=== PATIENT | female | born 2000 | race Caucasian/White ===

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

== ENCOUNTER → 2021-11-22 12:13 | Outpatient (CLI) | payer BC, OTHER, SELFPAY ==
[2021-11-22 14:12] LABS: HCG,Quantitative 4854 mIU/ml (0-5.42)
== END ==
PROVIDERS: PCP Family Medicine; Visit Provider Nurse Practitioner Obstetrics & Gynecology
DX: N92.6 Irregular menstruation, unspecified (principal)
CPT/HCPCS: 36415; 84702

== ENCOUNTER → 2021-12-20 15:02 | Outpatient (CLI) | payer BC, OTHER, SELFPAY ==
[2021-12-20 15:48] LABS: Basophils # 0.1 K/mm3 (0-0.2); Basophils % 0.8 % (0.1-2.0); Eosinophils % 0.3 % (0.1-12.0); Hematocrit 40.6 % (37.0-47.0); Hemoglobin 13.6 g/dL (12.2-16.2); Lymphocytes # 1.9 K/mm3 (0.7-4.5); Lymphocytes % 20.1 % (10-50); Mean Corpuscular HGB Conc 33.6 g/dL (31.8-35.4); Mean Corpuscular Hemoglobin 27.8 pg (27.0-31.2); Mean Corpuscular Volume 82.9 fl (81-99); Mean Platelet Volume 12.9 fl (7.4-10.4); Monocytes # 0.4 K/mm3 (0.1-1.0); Monocytes % 3.8 % (1.7-9.3); Red Blood Count 4.89 M/mm3 (4.20-5.40); Red Cell Distribution Width 14.4 % (11.5-17.5); White Blood Count 9.4 K/mm3 (4.5-13.0)
[2021-12-20 15:51] LABS: Platelet Count 39 K/mm3 (142-424)
[2021-12-22 12:15] LABS: Rapid Plasma Reagin Ab Titer Non Reactive (NonRea<1:1)
[2021-12-22 13:17] LABS: HIV Screen 4th Generation wRfx Non Reactive (Non Reactive); Hepatitis B Surface Antigen Negative (Negative); Hepatitis C Antibody 0.2 s/co ratio (0.0-0.9)
[2021-12-23 02:18] LABS: HSV 2 IgG, Type Spec <0.91 index (0.00-0.90); Rubella Antibodies, IgG 5.05 index (Immune >0.99)
[2021-12-24 07:09] LABS: Neisseria gonorrhoeae, NAA Negative (Negative)
== END ==
PROVIDERS: PCP Family Medicine; Visit Provider Nurse Practitioner Obstetrics & Gynecology
DX: Z34.90 Encounter for supervision of normal pregnancy, unspecified, unspecified trimester (principal)
CPT/HCPCS: 36415; 85025; 86592; 86695; 86703; 86762; 86790; 86850; 87340; 87380; 87491; 87591; G0432

== ENCOUNTER → 2021-12-28 14:58 | Outpatient (CLI) | payer BC, OTHER, SELFPAY ==
--- NOTE | 2021-12-28 14:59 | US_ITS ---
FINAL REPORT CLINICAL HISTORY: US OB Dates/Confirmation, before 14wks FINDINGS: Sonographic images of the pelvis were obtained. There is a single living intrauterine . [place] rump length measures 3.4 cm consistent with 10 week, 3 day gestation. The yolk sac measures 0.59 cm. Heartbeat is detected at 159 bpm. The uterus is otherwise normal. The ovaries are unremarkable. IMPRESSION: Single living intrauterine . Reviewed, Interpreted and Dictated by Bruno Skinner III, MD Transcribed by Kay Drake Authenticated by Bruno Skinner III, MD on 12/28/2021 04:46:10 PM [facility]
== END ==
PROVIDERS: PCP Family Medicine; Visit Provider Nurse Practitioner Obstetrics & Gynecology
DX: O26.841 Uterine size-date discrepancy, first trimester (principal)
CPT/HCPCS: 76801

== ENCOUNTER → 2022-01-17 17:02 | Outpatient (CLI) | payer BC, OTHER, SELFPAY | PROVIDERS: Visit Provider Nurse Practitioner Obstetrics & Gynecology | DX: Z31.430 Encounter of female for testing for genetic disease carrier status for procreative management (principal); O28.3 Abnormal ultrasonic finding on antenatal screening of mother | CPT/HCPCS: 36415 ==

== ENCOUNTER → 2022-04-21 09:03 | Outpatient (CLI) | payer OTHER, SELFPAY ==
[2022-04-21 09:56] LABS: Glucose,Fasting 90 mg/dl (74-100)
[2022-04-21 14:17] LABS: Glucose 1 Hour 120 mg/dL (74-100)
== END ==
PROVIDERS: PCP Family Medicine; Visit Provider Nurse Practitioner Obstetrics & Gynecology
DX: Z34.90 Encounter for supervision of normal pregnancy, unspecified, unspecified trimester (principal)
CPT/HCPCS: 36415; 82951

== ENCOUNTER → 2022-06-19 11:12 | Outpatient (CLI) | payer OTHER, SELFPAY ==
[2022-06-19 11:52] LABS: D-Dimer 0.97 ug/mL (0.0-0.5)
[2022-06-19 12:25] LABS: Anion Gap 10.4 mEq/L (5-15); Blood Urea Nitrogen 6 mg/dl (7-17); Calcium 8.7 mg/dl (8.4-10.2); Carbon Dioxide 21 mmol/L (22.0-30.0); Chloride 108 mmol/L (98-107); Estimated Glomerular Filt Rate 157 ml/min (>60); GFR (African American) 190 ML/MIN (>60); Glucose 94 mg/dl (74-100); Potassium 4.4 mmoL/L (3.5-5.1); Sodium 135 mmol/L (136-145)
[2022-06-19 12:34] LABS: Alanine Aminotransferase 21 U/L (12-78); Aspartate Amino Transferase 31 U/L (14-36); Uric Acid 4.1 mg/dl (2.5-6.2)
[2022-06-19 12:37] LABS: Basophils # 0.1 K/mm3 (0-0.2); Basophils % 0.5 % (0.1-2.0); Eosinophils # 0.2 K/mm3 (0.0-0.4); Eosinophils % 1.5 % (0.1-12.0); Hematocrit 29.8 % (37.0-47.0); Hemoglobin 9.5 g/dL (12.2-16.2); Lymphocytes # 1.9 K/mm3 (0.7-4.5); Lymphocytes % 19.1 % (10-50); Mean Corpuscular Hemoglobin 23.6 pg (27.0-31.2); Mean Corpuscular Volume 73.6 fl (81-99); Monocytes # 0.7 K/mm3 (0.1-1.0); Monocytes % 7.4 % (1.7-9.3); Neutrophils % 71.5 % (37.0-80.0); Red Blood Count 4.04 M/mm3 (4.20-5.40); Red Cell Distribution Width 17.2 % (11.5-17.5); White Blood Count 9.8 K/mm3 (4.5-13.0)
[2022-06-19 12:41] LABS: Platelet Count 26 K/mm3 (142-424)
[2022-06-19 13:00] LABS: Activated Partial Thrombo Time 23.6 seconds (22.8-30.6); Fibrinogen 449 mg/dL (229.9-363.5); INR 0.91 (0.9-1.1); Prothrombin Time 10.4 seconds (10.1-12.5)
== END ==
PROVIDERS: PCP Family Medicine; Visit Provider Nurse Practitioner Obstetrics & Gynecology
DX: O13.9 Gestational [pregnancy-induced] hypertension without significant proteinuria, unspecified trimester (principal); Z3A.35 35 weeks gestation of pregnancy; O99.119 Other diseases of the blood and blood-forming organs and certain disorders involving the immune mechanism complicating pregnancy, unspecified trimester; D69.6 Thrombocytopenia, unspecified
CPT/HCPCS: 36415; 80048; 84450; 84460; 84550; 85025; 85378; 85384; 85610; 85730

== ENCOUNTER → 2022-06-21 07:46 | Outpatient (CLI) | payer OTHER, SELFPAY ==
[2022-06-21 10:40] LABS: Patient Height,Urine 65 inches; Patient Weight,Urine 210 lbs
[2022-06-21 10:41] LABS: Total Volume,Urine 2050 mL (600-1600)
[2022-06-21 10:43] LABS: Collection Time,Urine 24 hours
[2022-06-21 11:18] LABS: Creatinine 24 Hour,Urine 1374 mg/24hr (630-2500)
[2022-06-21 11:19] LABS: Creatinine,Urine Random 67 mg/dL (Not Estab.); Total Protein 24 Hour,Urine 779 mg/24 hr (40-90)
== END ==
PROVIDERS: PCP Family Medicine; Visit Provider Nurse Practitioner Obstetrics & Gynecology
DX: Z34.90 Encounter for supervision of normal pregnancy, unspecified, unspecified trimester (principal)
CPT/HCPCS: 36415; 82575; 84155